=== PATIENT | female | born 1955 | race Caucasian/White ===

== ENCOUNTER → 2024-05-29 08:45 | Outpatient (REF) | payer MEDICARE, OTHER, SELFPAY | LOC: CLAB 08:45 | PROVIDERS: ATTENDING PHYSICIAN Plastic Surgery | DX: Z85.3 Personal history of malignant neoplasm of breast (principal); T85.43XD Leakage of breast prosthesis and implant, subsequent encounter; N65.1 Disproportion of reconstructed breast | CPT/HCPCS: 88304; 88311 ==